=== PATIENT | male | born 1985 | race African-American/Black ===

== ENCOUNTER → 2024-11-13 | Outpatient (CLI) | payer BC, SELFPAY ==
--- NOTE | 2024-11-13 17:00 | XR_ITS ---
Examination: CT abdomen without intravenous contrast. Coronal 2-D reconstructions. Sagittal 2-D reconstructions. Date and time of exam:November 13, 2024 1341 hours INDICATIONS: Diagnosis abdominal hernia umbilical hernia pain 6 months CTDI: vol (mGy): 7.87 DLP: (mGycm): 287 Technique: Axial images of the abdomen have been obtained, 3 mm slice thickness, without intravenous contrast 2-D sagittal coronal reconstructions Low dose protocols were performed. One or more of the following dose reduction techniques were used; automated exposure control, adjustment of the mA and/or KV according to patient size, use of iterative reconstruction technique. Findings: No focal liver or splenic lesions Contracted gallbladder No pancreatic or adrenal mass No renal or ureteral calculi 17 mm fat-containing umbilical hernia, no bowel present in this hernia defect No bowel obstruction Normal appendix Moderate osteopenia IMPRESSION: 17 mm fat-containing a buckle hernia
== END | disposition home or self-care (01) ==
LOC: CCTX 13:20
PROVIDERS: PCP Family Medicine; Referring Provider Registered Nurse; Visit Provider Registered Nurse
DX: K42.9 Umbilical hernia without obstruction or gangrene (principal)
CPT/HCPCS: 74150

== ENCOUNTER → 2025-03-13 | Outpatient (CLI) | payer BC, SELFPAY ==
--- NOTE | 2025-03-13 | XR_ITS ---
Examination: Cervical spine 4 views TECHNIQUE: AP, lateral, swimmer's lateral, AP odontoid cervical spine 4 views Date and time: The 2024 1148 hours INDICATIONS: Injury at the gym 3 months ago with persistent neck pain. FINDINGS: Satisfactory alignment cervical vertebral bodies. No cervical fracture. Mild disc narrowing C5-C6 Intact odontoid IMPRESSION: Early degenerative disc disease C5-C6
== END | disposition home or self-care (01) ==
LOC: CDIM 11:21
PROVIDERS: PCP Family Medicine; Referring Provider Chiropractor; Visit Provider Chiropractor
DX: M50.322 Other cervical disc degeneration at C5-C6 level (principal)
CPT/HCPCS: 72040